=== PATIENT | female | born 1995 | race Caucasian/White ===

== ENCOUNTER 2022-04-06 15:40 | Emergency (ER) | payer SELFPAY ==
[~2022-04-06] VITALS: Ht 162.6 cm; Wt 60.8 kg
--- NOTE | 2022-04-06 15:49 | NUR ---
ERNST KULKARNI FROM THE [facility] CALLED 911 S/P PATIENT WAS NOTED BE ACTING BIZZARE AND RUNNING AROUND. PER EMS REPORT, PATIENT ADMITS TO TAKING "METH" UPON ARRIVAL PATIENT WAS AGITATED AND VERBALLY ABUSIVE TO STAFF. ROOMED. PLACED ON MONITOR. AWAITING MD TERRAZAS.
--- NOTE | 2022-04-06 15:50 | NUR ---
WILIAN DISTILLERY WORKER AT BEDSIDE FOR EVAL.
[2022-04-06] MEDS ORDERED: LORAZEPAM INJ 2 MG/ML VIAL ONE (15:55)
[2022-04-06] MEDS ORDERED: HALOPERIDOL LACTATE INJ 5 MG/ML VIAL ONE (15:56)
[2022-04-06] MEDS ORDERED: diphenhydrAMINE HCL 50 MG/ML VIAL ONE (15:56)
[2022-04-06] MEDS ORDERED: diphenhydrAMINE HCL 50 MG/ML VIAL IM ONE (16:00)
[2022-04-06] MEDS ORDERED: HALOPERIDOL LACTATE INJ 5 MG/ML VIAL IM ONE (16:00)
[2022-04-06] MEDS ORDERED: LORAZEPAM INJ 2 MG/ML VIAL IVP ONE (16:00)
--- NOTE | 2022-04-06 16:06 | NUR ---
MEDICATED ORDERED. SEE EMAR.
[2022-04-06 17:43] LABS: BASOPHILS % (AUTO) 0.8 % (0.0-2.0); EOSINOPHILS % (AUTO) 3.4 % (0.0-6.0); HEMATOCRIT 35 % (33-45); HEMOGLOBIN 11.7 g/dL (11.5-14.8); LYMPHOCYTES % (AUTO) 32.3 % (20.0-44.0); MEAN CORPUSCULAR HGB CONC 33 g/dl (31.0-36.0); MEAN CORPUSCULAR VOLUME 87 fL (82-100); MONOCYTES # (AUTO) 0.4 K/uL (0.1-1.30); MONOCYTES % (AUTO) 6.7 % (2.0-12.0); NEUTROPHILS # (AUTO) 3.5 K/uL (1.8-8.9); NEUTROPHILS % (AUTO) 56.8 % (43.0-81.0); PLATELET COUNT (AUTO) 300 K/uL (150-450); RED BLOOD CELL COUNT(AUTO) 4.08 MIL/uL (4.0-5.2); WHITE BLOOD COUNT (AUTO) 6.2 K/uL (4.3-11.0)
--- NOTE | 2022-04-06 17:50 | NUR ---
PT ASLEEP, EASILY AROUSABLE. ON MONITOR W/ STABLE VITALS. WILL CONTINUE TO MONITOR.
[2022-04-06 17:55] LABS: CALCIUM, SERUM 8.8 mg/dL (8.5-10.1); CARBON DIOXIDE 26 mmol/L (21-32); CHLORIDE 104 mmol/L (98-107); CREATININE 0.7 mg/dL (0.6-1.3); GLUCOSE 73 mg/dL (74-106); POTASSIUM 3.3 mmol/L (3.5-5.1); SODIUM SERUM 138 mmol/L (136-145); UREA NITROGEN, BLOOD 17 mg/dL (7-18)
[2022-04-06 18:02] LABS: ALANINE AMINOTRANSFERASE 28 U/L (12-78); ALBUMIN 3.6 g/dL (3.4-5.0); ALKALINE PHOSPHATASE 66 U/L (46-116); ASPARTATE AMINOTRANSFERASE 16 U/L (15-37); BILIRUBIN,DIRECT 0.2 mg/dL (0.0-0.2); TOTAL PROTEIN, SERUM 7.9 g/dL (6.4-8.2)
[2022-04-06 18:05] LABS: ACETAMINOPHEN < 0 ug/ml (10-30); ALCOHOL, BLOOD < 3 mg/dL (0-0)
[2022-04-06 18:09] LABS: BILIRUBIN,URINE NEGATIVE (NEGATIVE); COLOR,URINE YELLOW (YELLOW); LEUKOCYTE ESTERASE ,URINE NEGATIVE (NEGATIVE); NITRITE, URINE NEGATIVE (NEGATIVE); PH,URINE 5.5 (5.0-8.0); PROTEIN,URINE 30 mg/dl (NEGATIVE); UGLUCOSE NEGATIVE (NEGATIVE); UROBILINOGEN,URINE 0.2 EU/dL (0.2)
--- NOTE | 2022-04-06 23:07 | NUR ---
PT SLEEPING. VSS. NO ACUTE DISTRESS AT THIS TIME.
--- NOTE | 2022-04-07 04:18 | NUR ---
PT SLEEPING BUT AROUSABLE. TOLERATING R/A WELL WITH NO SOB, RESP EVEN AND NON LABORED.
--- NOTE | 2022-04-07 07:45 | NUR ---
ASSUME PT CARE, RESTING IN BED. EASILY AROUSABLE. ON MONITOR. VSS. WILL CONTINUE TO MONITOR.
--- NOTE | 2022-04-07 10:25 | NUR ---
SS consult requested for drug absue and bizarre behavior. SW attempted to meet with pt. at bedside. The pt. is asleep and not rousable to verbal cues. SW will follow up at a later time.
--- NOTE | 2022-04-07 12:47 | NUR ---
PT IS AWAKE, ALERT VERBALLY RESPONSIVE. DENIES SI/HI. AWAITING FOR SW EVAL.
--- NOTE | 2022-04-07 13:04 | NUR ---
SS consult: SS Consult: SS consult requested for homelessness and drug abuse. The pt. is a 26- year-old Female patient who was [place] park with bizarre behavior. Upon SS consult, the pt. is Alert & Oriented x 3 and makes poor eye contact. Pt. kept eyes closed during interview. The pt. appears disheveled with depressed mood & affect. Pt.'s speech is WNL, and pt. remained calm & cooperative throughout interview. SW explored pt.'s drug history and pt. admits to using "different drugs. Pt. tested positive for some alcohol and Methamphetamine, Cannabinoids and PCP. SW provided motivational interviewing, education about penitentiary subtance dependence and offered drug rehab. Pt. refused referral for drug rehab. SW explored pt.'s living situation. Patient states she is experiencing homelessness for the past year and usually stays around [place] as her aunt lives there. SW explored pt.'s mental health Hx. Patient denies any mental illness. Pt. denies current SI/ HI and denies hallucinations. Per pt. she is ambulatory and independent with all his ADL's. HOLLI explored pt.'s support system. Pt. states her aunt is supportive. Plan: Pt. states she would like to return to [facility]. SW provided pt. with TAP card and pt. accepted it. SW provided pt. with homeless and addiction resources and pt. accepted them. Pt. signed homeless waiver and it was placed in the patient's chart. HOLLI discussed DC plan with Dr. Reinier IGNACIO. Year-round shelters: [facility] [address] [place] [address] ; [facility] [address] [place] [address]; [facility] [address] [facility]. [facility] [address] Hygiene: [facility]: [address] ; [facility] [address] [facility] ; [facility] [address] . Food Resources: [place] [facility] at [facility]- [address] [place]; Meet Each Need with Dignity (MEND) [address] [place]. [place]; [facility] [address] [facility]; [facility] 85[address] [facility]. Mental Health resources provided: [facility] [address] [place] [address] ; [facility] [address] [facility] [address], [place], [place] [id number] ; [facility] [address] [facility] [place], [place] [id number] ; [facility] [place], [place] [address] Healthcare Clinics: [facility] [address] [facility], [address] [place]. [place] ; [facility] [address] [facility] [address] [place] [address]; [facility] [place] [address] [place] [phone] Counseling--Outpatient [facility] [address] [facility], [address] [place], [place] [address] (Specializes in in-depth psychotherapy for emotional distress: anxiety, depression, interpersonal conflicts, life transitions, childhood abuse) [facility] [address] [place], [place] [id number] (Assist with solving problem marital difficulties, separation & divorce, aging parents, & grief, chronic & terminal illness) [facility] [address] [place] [address] (Deal with loss & grief, anxiety, marital difficulties) Homebound/Mental Health Services [address] [facility], [address] [place], [place] [address] (Provide in-home mental services to people who are incapable of leaving their homes) [facility] [address] [place] [address] [facility] [address] [place] [address] PSYCHIATRIC OUTPATIENT SERVICES [facility] Partial Hospitalization and Intensive Outpatient Program (Managed Care and [place] Only)[address] [facility] [phone] [facility] Partial Hospitalization and Outpatient [address] [place], [place] [phone] Pending sale to [facility] [place] [id number] [facility]. [address] [place], [place] [phone] [facility] Partial Hospitalization and Outpatient [id number] [facility] Nayeli, [phone] Substance Abuse resources provided included: [facility] Substance Abuse Self-Helpline ([facility]) ; [facility] [address] [facility]. [place] [address] ; [facility] [address] [facility] [address] ; [facility] [address] [address] ; [facility] [address] [facility] [address] ; [facility] [address] [facility] [address] ; [facility] [address] [facility] [address] ; [facility] Substance Abuse Helpline([facility] ; [facility] ; [facility] [place]; [facility] [place]; [facility] [place]; [facility] [place]; [facility] [place]; [place] [facility] [place]; [facility] Kimberly; [facility]. [place]; Alcoholics Anonymous -[facility]; [place] ; Marijuana Anonymous -[facility]; Narcotics Anonymous www.na.org;
--- NOTE | 2022-04-07 13:20 | NUR ---
Patient discharged to home in stable condition. Written and verbal after care instructions given. Patient verbalizes understanding of instruction.
[2022-04-07 14:02] VITALS: BP 118/76
== END 2022-04-07 14:02 | disposition home or self-care (01) ==
LOC: ER 15:43
DX: F15.10 Other stimulant abuse, uncomplicated (principal); F19.10 Other psychoactive substance abuse, uncomplicated; E87.6 Hypokalemia; Z20.822 Contact with and (suspected) exposure to COVID-19; Z59.00 Homelessness unspecified
CPT/HCPCS: 99285; 96372 ×2; 85025; 80048; 80076; 84703; 81003; 36415; 87426; 80143; 80320; 80307; J2060; J1200; J1630; C9803; G0480